=== PATIENT | female | born 1955 | race African-American/Black ===

== ENCOUNTER 2016-10-05 19:50 | Emergency (ER) | payer OTHER, BC | END 2016-10-05 21:36 | disposition home or self-care (01) | LOC: ER 19:50 | DX: R07.89 Other chest pain (principal); S81.012A Laceration without foreign body, left knee, initial encounter; S91.011A Laceration without foreign body, right ankle, initial encounter; Z88.0 Allergy status to penicillin; V89.2XXA Person injured in unspecified motor-vehicle accident, traffic, initial encounter | CPT/HCPCS: 71020; 90471; 90714; 93005; 96372; 99285; A9270-GY; J2360 ==